=== PATIENT | female | born 1970 | race Caucasian/White ===

== ENCOUNTER → 2018-06-03 15:02 | Outpatient (CLI) | payer BC, SELFPAY ==
--- NOTE | 2018-06-03 15:05 | MM_ITS ---
MM Dig screening mamm BI w/CAD ORDERING PHYSICIAN : Judy Chaidez MD PATIENT AGE: 47 years GENDER: Female COMPARISON: No previous studies available. Previous [facility] studies from 1999 have been purged in accordance with administration protocols. INDICATION: ITS.REASON: SCREENING no hormones no new complaints Family history. Mother with breast cancer in her 70s. TECHNIQUE: Standard CC and MLO images were obtained. R2 CAD reviewed. Additional axillary cc views both breasts performed FINDINGS: Mild asymmetry. Moderate residual fibroglandular elements. Mild fatty replacement bilaterally. No suspicious nor dominant mass either breast. No architectural distortion nor No Suspicious calcifications in either breast. . RIGHT BREAST:No significant areas of concern. Follow-up in one year adequate. LEFT BREAST:Mild asymmetry towards upper-outer quadrant of left breast appear to be merely asymmetric fibroglandular tissue. Unimpressive. It seems to dissipate on MLO view. I would recommend a bilateral follow-up in one year for ongoing evaluation. . Self breast examination be encouraged & if any palpable area encountered here at our prior quadrant the left than interval follow-up would be warranted. Again I favor the asymmetry is merely due to some asymmetric fibroglandular elements IMPRESSION:....... . No areas of significant concern. Mild asymmetry most compatible with asymmetric normal fibroglandular elements . Bilateral follow-up study in within one year recommended Would Encourage self breast exam as discussed above BI-RADS Category: 2 Benign Finding(s) RECOMMENDED FOLLOW-UP: 1YR 1 YEAR FOLLOW-UP (A letter has been sent to the patient regarding results of the study.) .
== END ==
PROVIDERS: Family Provider Family Medicine; PCP Emergency Medicine; Visit Provider Emergency Medicine
DX: Z12.31 Encounter for screening mammogram for malignant neoplasm of breast (principal)
CPT/HCPCS: 77067

== ENCOUNTER → 2021-07-12 13:31 | Outpatient (CLI) | payer BC, SELFPAY | PROVIDERS: PCP Family Medicine; Visit Provider Nurse Practitioner | DX: U07.1 COVID-19 (principal) | CPT/HCPCS: C9803; U0003; U0005 ==

== ENCOUNTER 2021-11-09 13:36 | Emergency (ER) | payer BC, SELFPAY ==
[2021-11-09] VITALS (8 sets, daily range): BP systolic 129–144; BP diastolic 86–106; PULSE 83–102; RESP 14–18; TEMP 36.6; O2SAT 95–99; BMI 28.7
--- NOTE | 2021-11-09 13:32 | ECG_ITS ---
APPROVED REPORT Exam: Resting ECG HR:91 bpm ECG Measurements Heart Rate 91 AXES NV 149 P 51 QRSd 102 QRS -6 QT 352 T 48 QTc 401 Conclusion SINUS RHYTHM LOW QRS VOLTAGE IN PRECORDIAL LEADS [QRS DEFLECTION < 1.0 mV IN CHEST LEADS] BORDERLINE ECG UNCONFIRMED REPORT Electronically signed by : Bhanu Mcguire MD 11/10/2021 12:27:43
--- NOTE | 2021-11-09 13:50 | XR_ITS ---
FINAL REPORT CLINICAL HISTORY: chest pain FINDINGS: Two views of the chest were obtained. The heart size and pulmonary vascularity are within normal limits. The mediastinum is normal. No acute pulmonary abnormality is identified. There is no pneumothorax. The bony thorax is intact. IMPRESSION: No active cardiopulmonary disease. Reviewed, Interpreted and Dictated by Francisco Mcgovern III, MD Transcribed by Iggy Osuna Authenticated by Francisco Mcgovern III, MD on 11/09/2021 03:02:49 PM [facility]
[2021-11-09 14:07] LABS: Basophils % 0.7 % (0.1-2.0); Eosinophils % 0.5 % (0.1-12.0); Hematocrit 44.4 % (37.0-47.0); Hemoglobin 14.7 g/dL (12.2-16.2); Lymphocytes # 1.7 K/mm3 (0.7-4.5); Lymphocytes % 26.5 % (10-50); Mean Corpuscular HGB Conc 33.1 g/dL (31.8-35.4); Mean Corpuscular Hemoglobin 30.4 pg (27.0-31.2); Mean Corpuscular Volume 91.9 fl (81-99); Mean Platelet Volume 9.5 fl (7.4-10.4); Monocytes # 0.3 K/mm3 (0.1-1.0); Monocytes % 4.4 % (1.7-9.3); Neutrophils # 4.3 K/mm3 (1.8-7.8); Neutrophils % 67.8 % (37.0-80.0); Platelet Count 299 K/mm3 (142-424); Red Blood Count 4.83 M/mm3 (4.20-5.40); Red Cell Distribution Width 14.2 % (11.5-17.5); White Blood Count 6.3 K/mm3 (4.8-10.8)
[2021-11-09 14:10] LABS: Anion Gap 10.9 mEq/L (5-15); Blood Urea Nitrogen 11 mg/dl (7-17); Calcium 9.2 mg/dl (8.4-10.2); Carbon Dioxide 27 mmol/L (22.0-30.0); Chloride 105 mmol/L (98-107); Creatinine Clearance Estimated 157 mL/min (50-200); Estimated Glomerular Filt Rate 105 ml/min (>60); GFR (African American) 127 ML/MIN (>60); Glucose 96 mg/dl (74-100); Potassium 3.9 mmoL/L (3.5-5.1); Sodium 139 mmol/L (136-145)
[2021-11-09 14:27] LABS: Troponin I < 0.01 ng/ml (0.00-0.034)
--- NOTE | 2021-11-09 15:00 | HMH.EDGENADL ---
ED Disposition Clinical Impression: Anxiety Chest pain Qualifiers: Chest pain type: unspecified Qualified Code(s): R07.9 - Chest pain, unspecified Disposition: Home, Self-Care Condition on Discharge: Good Referrals: Marco A Zuleta MD [Primary Care Provider] - - Critical Care Critical Care Time: No Attestation: On 11/09/21, the high probability of a clinically significant, sudden or life threatening deterioration of the following system(s) required my full and direct attention, intervention and personal management. The time I documented below is in addition to time spent performing reported procedures but includes the following listed in this critical care notation. Medical Decision Making - Medical Records Medical records reviewed: Yes: I reviewed the patient's medical records. - [place] Inquiry Pt receiving controlled substance: No Vital Signs: 11/09/21 14:09 11/09/21 14:30 11/09/21 14:36 Temperature 97.9 F Temperature Source Oral Pulse Rate 90 88 Pulse Rate [Left Radial] 102 H Respiratory Rate 18 15 14 Blood Pressure 144/106 H 142/94 H Blood Pressure [Right Arm] 136/89 Blood Pressure Mean 119 120 Blood Pressure Mean [Right Arm] 104 02 Sat by Pulse Oximetry 97 97 98 Oxygen Delivery Method Room Air 11/09/21 15:00 11/09/21 15:30 11/09/21 16:00 Temperature Temperature Source Pulse Rate 85 89 84 Pulse Rate [Left Radial] Respiratory Rate 15 14 15 Blood Pressure 131/87 143/94 H 138/93 H Blood Pressure [Right Arm] Blood Pressure Mean 109 104 104 Blood Pressure Mean [Right Arm] 02 Sat by Pulse Oximetry 97 98 96 Oxygen Delivery Method - Lab Data Lab results reviewed: Yes: I reviewed the patient's lab results. Lab Results 11/09/21 13:45: WBC 6.3, RBC 4.83, Hgb 14.7, Hct 44.4, MCV 91.9, MCH 30.4, MCHC 33.1, RDW 14.2, Plt Count 299, MPV 9.5, Neut % (Auto) 67.8, Lymph % (Auto) 26.5, [place] % (Auto) 4.4, Eos % (Auto) 0.5, Baso % (Auto) 0.7, Neut # (Auto) 4.3, Lymph # (Auto) 1.7, [place] # (Auto) 0.3, Eos # (Auto) 0.0, Baso # (Auto) 0.0 11/09/21 13:45: Sodium 139, Potassium 3.9, Chloride 105, Carbon Dioxide 27, Anion Gap 10.9, BUN 11, Creatinine 0.60, Estimated Creat Clear 157, Estimated GFR 105, Est GFR ( Amer) 127, Glucose 96, Calcium 9.2, Troponin I < 0.01 Result diagrams: 11/09/21 13:45 11/09/21 13:45 Orders (Tests/Meds): ED MEDICATIONS Discontinued Medications Generic Name Dose Route Start Last Admin Trade Name Srikanth PRN Reason Stop Dose Admin Aspirin 324 mg 11/09/21 13:51 11/09/21 13:53 Aspirin 81mg Chewable Tablet PO 11/09/21 13:52 324 mg ONCE ONE Administration Lorazepam 0.5 mg 11/09/21 14:17 11/09/21 14:28 Lorazepam 0.5mg Tablet PO 11/09/21 14:18 0.5 mg ONCE ONE Administration ORDERS Category Date Time Status Troponin I Q3H Lab 11/09/21 17:00 Ordered Troponin I Q3H Lab 11/09/21 20:00 Ordered Medical Decision Narrative: Patient is a healthy 51-year-old female with history of panic attacks presenting for chest pain in the setting of symptoms identical to prior panic attacks. On my exam, patient is asymptomatic. Differential diagnosis includes, but is not limited to, musculoskeletal strain, GI discomfort such as GERD, pericarditis, myocarditis, pneumonia, pneumothorax, ACS. She was evaluated CBC, CMP, troponin, EKG and chest x-ray. She was treated with 25 mg of p.o. Ativan. On reassessment, patient has significant improvement in her symptoms. Lab work is unremarkable. Initial troponin is reassuring. I discussed with patient that initial troponin does not completely rule out ACS at this time but given that she is asymptomatic and symptoms are similar to prior episodes, my suspicion for acute ACS is very low at this time. She is agreeable to discharge at this time. She was given strict return cautions, advised to obtain a ride home and discharged in a stable condition. General Adult HPI - General Emi
== END 2021-11-09 16:48 | disposition home or self-care (01) ==
PROVIDERS: Emergency Provider Emergency Medicine; PCP Psychiatry & Neurology Sleep Medicine
DX: R07.2 Precordial pain (principal); M79.602 Pain in left arm; F41.9 Anxiety disorder, unspecified; F41.0 Panic disorder [episodic paroxysmal anxiety]; Z88.5 Allergy status to narcotic agent
CPT/HCPCS: 71046; 80048; 84484; 85025; 93005; 99284

== ENCOUNTER 2022-04-02 09:02 | Emergency (ER) | payer BC, SELFPAY ==
--- NOTE | 2022-04-02 09:06 | HMH.EDUTC ---
[facility] Disposition Clinical Impression: Pruritus of palm Disposition: Home, Self-Care Condition on Discharge: Good Instructions: DI for Rash, Prednisone, Adapalene Additional Instructions: Signs and symptoms ? Monkeypox has traditionally caused a systemic illness that includes fevers, chills, and myalgias, with a characteristic rash that is important to differentiate from that of other vesicular eruptions (eg, herpes simples, varicella, smallpox). However, during the outbreak of monkeypox disease starting in December 2021, some patients have presented with genital, rectal, and/or oral lesions without the initial prodrome [41]. *Prodromal period ? The prodromal period, which typically lasts up to five days, is characterized by fever, intense headache, lymphadenopathy, back pain, myalgia, and severe fatigue. Swelling of the lymph nodes may be generalized (involving many different locations on the body) or localized to several areas. *Rash ? The skin eruption usually begins within one to four days of appearance of fever and continues for a period of two to three weeks. The rash tends to be more concentrated on the face but often develops other sites that may include oral mucous membranes, conjunctivae, anus, and genitalia. In cases reported beginning in December 2021, it was noted that some patients may present with proctitis or with lesions located on the genital or perianal area alone (figure 1) [36,50,57]. Your current issue does not appear to have the typical presentation as monkey pox, but follow up with your primary care physician for a recheck of your symptoms in 24 to 48 hours. Prescriptions: Adapalene 1 applic TP HS 7 Days #45 gm Transmission Status: Received by [id number] predniSONE [Prednisone 20mg Tab] 20 mg PO BID 3 Days #6 tab Transmission Status: Received by [id number] Referrals: Santino Zuleta MD [Primary Care Provider] - Forms: Work/School Release Time of Disposition: 09:40 Medical Decision Making - Medical Records Medical records reviewed: No: I reviewed the patient's medical records. - [place] Inquiry Pt receiving controlled substance: No Vital Signs: 04/02/22 09:18 04/02/22 09:40 Temperature 98.5 F 98.5 F Temperature Source Oral Pulse Rate 95 H Pulse Rate [Left] 95 H Respiratory Rate 16 16 Blood Pressure 128/83 Blood Pressure [Right Arm] 128/83 Blood Pressure Mean [Right Arm] 98 02 Sat by Pulse Oximetry 96 [facility] HPI - General Stated complaint: Itchy hands Time Seen by Provider: 04/02/22 09:06 - History of Present Illness Provider Complaint: She is here with itchy palms since this morning. she denies any skin lesions, fever, malaise, chills or other complaints, but her employer wanted her to be evaluated for monkey pox. - Related Data Previous Rx's Medication Instructions Recorded Adapalene 1 applic TP HS 7 Days #45 gm 04/02/22 predniSONE [Prednisone 20mg 20 mg PO BID 3 Days #6 tab 04/02/22 Tab] Allergies Allergy/AdvReac Type Severity Reaction Status Date / Time bacitracin Allergy Verified 04/02/22 09:21 [From Neosporin ([id number])] doxycycline Allergy Verified 04/02/22 09:21 neomycin Allergy Verified 04/02/22 09:21 [From Neosporin ([id number])] polymyxin B Allergy Verified 04/02/22 09:21 [From Neosporin ([id number])] CODEINE Allergy Mild FEEL Uncoded 08/12/17 14:38 [facility] History - Hepatitis A Screen Attestation statement:: This patient has been screened for Hepatitis A risk factors. I have reviewed the patient's past medical history: Yes ROS Obtained: Yes All systems reviewed & no additional complaints - Constitutional Constitutional: Reports as per HPI - Eyes Eyes: Denies eye discharge - ENT Ears, Nose, Mouth, and Throat: Denies dizziness, Denies otalgia, Denies sore throat - Cardiovascular Cardiovascular: Denies chest pain - Respirat
[2022-04-02 09:18] VITALS: BP 128/83; PULSE 95; RESP 16; TEMP 36.9; O2SAT 96; BMI 29.4
[2022-04-02 09:40] VITALS: BP 128/83; PULSE 95; RESP 16; TEMP 36.9
== END 2022-04-02 09:48 | disposition home or self-care (01) ==
PROVIDERS: Emergency Provider Nurse Practitioner Family; PCP Family Medicine
DX: L29.9 Pruritus, unspecified (principal)
CPT/HCPCS: 99212; G0463